=== PATIENT | female | born 1985 ===

== ENCOUNTER 2020-07-07 12:54 | Inpatient (IN) ==
[2020-07-07] MEDS ORDERED: Lactated Ringers 1000 ml BAG 1,000 ML IV ONE (16:16)
[2020-07-07] MEDS ORDERED: Buffered Lidocaine 1% SYRIN 1 ml INTRADERM ONE (16:16)
[2020-07-07] MEDS ORDERED: Lactated Ringers 1000 ml BAG 1,000 ML IV SCH ×2 (17:00→22:00)
[2020-07-07 19:30] LABS: Urine Benzodiazepine Screen None Detected (None Detect); Urine Cannabinoids Screen None Detected (None Detect); Urine Opiates Screen None Detected (None Detect)
[2020-07-07] MEDS ORDERED: Witch Hazel PAD JAR TOPICAL PRN (21:27)
[2020-07-07] MEDS ORDERED: Glycerin ADULT 2.4 gm SUPP PR PRN (21:27)
[2020-07-07] MEDS ORDERED: Oxytocin 10 UNITS/ML 1 ML VIAL IM ONE (21:27)
[2020-07-07] MEDS ORDERED: Dibucaine 1% OINT 28.35 GM TUBE PR PRN (21:27)
[2020-07-08] MEDS ORDERED: Lidocaine 1% VIAL 10 MG/ML VIAL ONE (00:10)
[2020-07-08 07:52] LABS: Hematocrit 33 % (35-47); Mean Corpuscular HGB Conc 34 g/dL (31-36); Mean Corpuscular Hemoglobin 30 pg (27-31); Mean Corpuscular Volume 89 fL (80-97); Platelet Count 130 10^3/uL (150-450); Red Blood Count 3.67 10^6 /uL (3.70-4.87); Red Cell Distribution Width 14 % (10-15); White Blood Count 18.5 10^3/uL (3.5-10.8)
[2020-07-08 09:05] LABS: ABS Lymphocytes 1.3 10^3/ul (1.0-4.8); ABS Monocytes 1.6 10^3/ul (0-0.8); ABS Neutrophils 15.5 10^3/ul (1.5-7.7); Eosinophil % 0.1 %; Lymphocyte % 6.9 %
[2020-07-09 09:00] VITALS: BP 106/64
== END 2020-07-09 16:55 | disposition home or self-care (01) | DRG 560 ==
LOC: MCHOBOUT 12:54 → MCHOB 16:15
PROVIDERS: ADMIT Midwife; ATTEND Midwife